=== PATIENT | female | born 1995 ===

== ENCOUNTER 2018-04-16 06:45 | Outpatient (CLI) | payer BC ==
--- NOTE | 2018-04-16 08:49 | ULT ---
PELVIC ULTRASOUND: Date: 04/16/18 COMPARISON: None. HISTORY: Right lower quadrant abdominal/pelvic pain for 2 weeks. TECHNIQUE: Multiplanar Garrison scale and color Doppler images were obtained in a transabdominal and transvaginal pe lvic ultrasound. Spectral analysis of the Doppler waveforms of the ovaries performed. FINDINGS: The uterus is retroverted. There is a small hypoechoic to isoechoic region in the uterus measuring 1. 5 cm in greatest dimension which could represent a small fibroid. The endometrial stripe is normal in thickness, measuring 7.0 mm. No free fluid is seen in the pelvis. Both ovaries are normal in size and appearance and demonstrate n ormal internal flow. IMPRESSION: Possible small uterine fibroid. POS: [facility]
== END 2018-04-16 06:46 | disposition home or self-care (01) ==
LOC: BICULT 06:45
PROVIDERS: ATTEND Physician Assistant
DX: R10.31 Right lower quadrant pain (principal)
CPT/HCPCS: 76856